=== PATIENT | male | born 1990 | race Caucasian/White ===

== ENCOUNTER 2018-11-22 14:47 | Emergency (ER) | payer MEDICAID ==
[2018-11-22] MEDS ORDERED: methylPREDNISolone Sodium Succinate 125 MG/2 ML SDV IM ONE (15:59)
--- NOTE | 2018-11-22 16:02 | EDM.PDOC ---
ED HPI GENERAL MEDICAL PROBLEM - General Chief Complaint: Skin Complaint Stated Complaint: RASH/HIVES ALL OVER BODY Time Seen by Provider: 11/22/18 15:41 Source of Information: Reports: Patient History Limitations: Reports: No Limitations - History of Present Illness INITIAL COMMENTS - FREE TEXT/NARRATIVE: states started on Friday; has been taking benadryl every 6-8 hours; unsure of what is causing this. Hives all over; itching all over Denies tongue or throat swelling, no difficulty breathing; no wheezing. Onset: Gradual Location: Reports: Other (everywhere but his face) Severity: Moderate - Related Data Allergies Allergy/AdvReac Type Severity Reaction Status Date / Time No Known Allergies Allergy Verified 11/22/18 15:41 Home Meds: Home Meds *Sertraline 1 tab PO DAILY 11/22/18 [History] Past Medical History Respiratory History: Reports: Asthma Musculoskeletal History: Reports: Fracture Psychiatric History: Reports: Addiction, Anxiety - Past Surgical History GI Surgical History: Reports: Cholecystectomy Male Surgical History: Reports: Other (See Below) Other Male Surgeries/Procedures: hydrocele left testicle Social & Family History - Tobacco Use Smoking Status *Q: Light Tobacco Smoker Years of Tobacco use: 10 Packs/Tins Daily: 0.5 - Recreational Drug Use Recreational Drug Use: Yes Recreational Drug Type: Reports: Cocaine, Methamphetamine ED ROS GENERAL - Review of Systems Review Of Systems: See Below Constitutional: Reports: No Symptoms HEENT: Reports: No Symptoms Respiratory: Reports: No Symptoms Cardiovascular: Reports: No Symptoms GI/Abdominal: Reports: No Symptoms : Reports: No Symptoms Musculoskeletal: Reports: No Symptoms Skin: Reports: Rash, Urticaria Neurological: Reports: No Symptoms Psychiatric: Reports: No Symptoms ED EXAM, SKIN/RASH Exam: See Below Exam Limited By: No Limitations General Appearance: Alert, WD/WN, No Apparent Distress Neck: Normal Inspection, Supple, Non-Tender, Full Range of Motion Respiratory/Chest: No Respiratory Distress, Lungs Clear, Normal Breath Sounds Cardiovascular: Regular Rate, Rhythm Back Exam: Full Range of Motion Extremities: Normal Range of Motion, Non-Tender Neurological: Alert, Oriented, CN II-XII Intact, Normal Cognition, Normal Gait Psychiatric: Normal Affect, Normal Mood Skin: Warm, Dry, Rash Location, Skin: Neck, Chest, Abdomen, Back, Upper Extremity, Right, Upper Extremity, Left, Lower Extremity, Right, Lower Extremity, Left, Generalized Characteristics: Urticarial, Erythematous Associated features: Induration Course - Vital Signs Last Recorded V/S: Last Vital Signs Temp 96.7 F 11/22/18 15:48 Pulse 95 11/22/18 15:48 Resp 16 11/22/18 15:48 BP 131/71 11/22/18 15:48 Pulse Ox 98 11/22/18 15:48 - Orders/Labs/Meds Meds: Medications Discontinued Medications Generic Name Dose Route Start Last Admin Trade Name Rocío PRN Reason Stop Dose Admin Methylprednisolone Sodium Succinate 125 mg 11/22/18 15:59 11/22/18 16:14 Solu-Medrol IM 11/22/18 16:00 125 mg ONETIME ONE Administration Departure - Departure Time of Disposition: 16:17 Disposition: Home, Self-Care 01 Condition: Fair Clinical Impression: Urticaria, Allergic reaction - Discharge Information *PRESCRIPTION DRUG MONITORING PROGRAM REVIEWED*: Not Applicable *COPY OF PRESCRIPTION DRUG MONITORING REPORT IN PATIENT NEHEMIAS: Not Applicable Instructions: Pruritus, Hives Referrals: PCP,None [Primary Care Provider] - Forms: ED Department Discharge Additional Instructions: Take the medrol dose pepito as directed (start tomorrow morning) Benadryl 50 mg every 8 hours for itching Drink plenty of water Follow up in 3 days if you are not improving - Problem List & Annotations (1) Urticaria SNOMED Code(s): 081184541 Code(s): L50.9 - URTICARIA, UNSPECIFIED Status: Acute Priority: Medium Current Visit: Yes - Problem List Review Problem List Initiated/Reviewed/Updated: Yes
== END 2018-11-22 16:25 | disposition home or self-care (01) ==
LOC: JP.ED 14:47
DX: L50.0 Allergic urticaria (principal); F41.9 Anxiety disorder, unspecified; Z79.899 Other long term (current) drug therapy; F17.210 Nicotine dependence, cigarettes, uncomplicated; Z90.49 Acquired absence of other specified parts of digestive tract
CPT/HCPCS: 96372; 99282; J2930